=== PATIENT | male | born 1995 | race Caucasian/White ===

== ENCOUNTER 2017-06-03 21:29 | Emergency (ER) | payer MEDICARE, MEDICAID ==
[2017-06-04] MEDS ORDERED: Tetan/Diph/Pertus SYR(Tdap)* 0.5 ML SYR(BOOSTRIX) use SYR IM ONE (01:03)
[2017-06-04] MEDS ORDERED: Ibuprofen TAB* 600 MG PO ONE (01:03)
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
[2017-06-04] MEDS ORDERED: Cephalexin CAP* 500 MG PO ONE (01:23)
[2017-06-04 02:16] VITALS: BP 129/65
--- NOTE | 2017-06-04 07:37 | RAD ---
INDICATION: Laceration to right middle finger COMPARISON: None. TECHNIQUE: 2 views of the right hand were obtained. FINDINGS: On the 2 views of the right hand and there is flexion at the right middle finger distal interphalangeal joint. The bones are otherwise appropriately corticated and well aligned. No subcutaneous foreign body is visualized. IMPRESSION: Flexure of the right middle finger distal interphalangeal joint could be due to positioning or secondary to a tendinous injury following laceration. Please correlate to physical examination.
== END 2017-06-04 02:15 | disposition home or self-care (01) ==
LOC: ED 21:29
DX: S61.219A Laceration without foreign body of unspecified finger without damage to nail, initial encounter (principal); S63.612A Unspecified sprain of right middle finger, initial encounter; W25.XXXA Contact with sharp glass, initial encounter; Y93.9 Activity, unspecified; Y92.9 Unspecified place or not applicable; Z87.39 Personal history of other diseases of the musculoskeletal system and connective tissue; F17.210 Nicotine dependence, cigarettes, uncomplicated
CPT/HCPCS: 90471; 90715; 99282; A9270-GY

== ENCOUNTER 2017-06-04 10:28 | Emergency (ER) | payer MEDICARE, MEDICAID ==
[2017-06-04 10:38] VITALS: BP 133/78
[2017-06-04] MEDS ORDERED: Cephalexin CAP* 500 MG PO ONE (11:27)
[2017-06-04] MEDS ORDERED: Bacitracin OINTMENT* 1 TUBE TOPICAL ONE (11:27)
--- NOTE | 2017-06-22 11:39 | UC ---
Gerardo Ross Alfonso, scribed for Fela Daniels MD on 06/04/17 at 1127 . Hand/Wrist HPI - HPI Summary HPI Summary: This patient is a 21 year old M presenting to [facility] with a chief complaint of right 3rd finger pain since yesterday. He presented to [facility] a few hours ago where his right finger laceration was treated. The patient rates the pain 8/10 in severity. Symptoms aggravated by nothing. Symptoms alleviated by nothing. Pt requests medication for the pain. Patients medications reviewed this visit. Patients allergies reviewed this visit. - History Of Current Complaint Chief Complaint: UCUpperExtremity Stated Complaint: NEEDS PAIN MED FOR FINGER INJURY Time Seen by Provider: 06/04/17 10:51 Hx Obtained From: Patient Onset/Duration: Sudden Onset, Lasting Hours - yesterday, Still Present Severity Initially: Moderate Severity Currently: Moderate Pain Intensity: 8 Pain Scale Used: 0-10 Numeric Aggravating Factor(s): Other - Nothing Alleviating: Nothing Associated Signs And Symptoms: Positive: Other - right hand laceration / pain - Allergies/Home Medications Allergies/Adverse Reactions: Allergies Allergy/AdvReac Type Severity Reaction Status Date / Time No Known Allergies Allergy Verified 06/05/17 09:31 PMH/Surg Hx/FS Hx/Imm Hx Other History Of: Negative For: Anticoagulant Therapy - Surgical History Surgical History: None Surgery Procedure, Year, and Place: Unknown - Family History Known Family History: Positive: Cardiac Disease, Diabetes - Social History Alcohol Use: None Substance Use Type: Marijuana Substance Use Comment - Amount & Last Used: hx of opiate Smoking Status (MU): Current Every Day Smoker Amount Used/How Often: ppd Review of Systems Constitutional: Negative Skin: Other - Positive right 3rd finger laceration and pain All Other Systems Reviewed And Are Negative: Yes Physical Exam Triage Information Reviewed: Yes Appearance: Well-Nourished Vital Signs: Initial Vital Signs Temp 98.1 F 06/04/17 10:35 Pulse 66 06/04/17 10:35 Resp 16 06/04/17 10:35 BP 133/78 06/04/17 10:35 Pulse Ox 100 06/04/17 10:35 Vital Signs Reviewed: Yes Eye Exam: Normal ENT Exam: Normal Neck exam: Normal Neck: Positive: No Lymphadenopathy Respiratory Exam: Normal Respiratory: Positive: Other: - no dyspnea, no tachypnea, normal respiratory rate Cardiovascular: Positive: RRR, Other: - good general skin color, good capillary refill Abdomen Description: Positive: Nontender, Soft Bowel Sounds: Positive: Present Musculoskeletal Exam: Normal Musculoskeletal: Positive: Strength Intact Neurological Exam: Normal Neurological: Positive: Alert Psychological: Positive: Age Appropriate Behavior Skin: Positive: Other - Right 3rd finger has a 2 cm irregular laceration. Mild redness. Macerated. No purulence. Cap refill less than two seconds. Sensations distally intact to light touch. Deep with tendon involvement. Hand/Wrist Course/Dx - Course Course Of Treatment: This patient is a 21 year old M presenting to [facility] with a chief complaint of right 3rd finger pain since yesterday. [facility] his [facility] finger lac[facility] was treated. The patient rates the pain 8/10 in severity. Symptoms aggravated by nothing. Symptoms alleviated by nothing. Pt requests medication for the pain. Patients medications reviewed this visit. Patients allergies reviewed this visit. Patient will be discharged with follow up from Dr. Aguilera and PCP. The patient is agreeable with this plan. Will f/u with Dr. Aguilera today after [facility] visit. Splint and bandage re-applied here, with good distal cap refill upon completion. Analgesic type / script per Dr. Aguilera. D/w pt, he is ok with this. - Differential Dx/Diagnosis Provider Diagnoses: R 3rd finger laceration with tendon involvement Discharge - Discharge Plan Condition: Stable Disposition: HOME Patient Education Materials: Tendon Laceration (ED) Referrals: [facility] PHYSICIAN REFERRAL [Outside] Orquidea Aguilera MD [Medical Doctor] - Additional Instructions: Follow up primary care physician - see [facility] referral tel number Follow up Dr. Lewis today at 13:30. Keep splint on until then. The documentation as recorded by the Gerardo posadas Alfonso accurately reflects the service I personally performed and the decisions made by me, Fela Daniels MD.
== END 2017-06-04 11:50 | disposition home or self-care (01) ==
LOC: UCEAST 10:28
DX: S61.212A Laceration without foreign body of right middle finger without damage to nail, initial encounter (principal); S56.423A Laceration of extensor muscle, fascia and tendon of right middle finger at forearm level, initial encounter; W25.XXXA Contact with sharp glass, initial encounter; Y93.9 Activity, unspecified; Y92.9 Unspecified place or not applicable; F17.210 Nicotine dependence, cigarettes, uncomplicated
CPT/HCPCS: 99212; A9270-GY; G0463

== ENCOUNTER 2017-06-05 09:13 | Day surgery (SDC) | payer MEDICARE, MEDICAID ==
[~2017-06-05 09:13] MED LIST: Buffered Lidocaine 0.9% SYRIN* 5 ML/SYR SYRINGE INTRADERM ONE
[2017-06-05] MEDS ORDERED: ceFAZolin 2 GM PREMIX (*) 50 ML IVPB ONE (09:22)
[2017-06-05] MEDS ORDERED: fentaNYL* 50 MCG/ML 2 ML VIAL (100 MCG VIAL) ONE (10:21)
[2017-06-05] MEDS ORDERED: Midazolam* 1 MG/ML 2 ML VIAL (2 MG) ONE (10:22)
[2017-06-05] MEDS ORDERED: Lidocaine 1% INJ* 10 MG/ML 30 ML SDV ONE (10:34)
[2017-06-05] MEDS ORDERED: Ketorolac INJ* 30 MG/ML 1 ML VIAL ONE (10:49)
[2017-06-05] MEDS ORDERED: Propofol* 10 MG/ML 20 ML BTL IV PUSH ONE (10:49)
[2017-06-05] MEDS ORDERED: Lidocaine 2% PF * 5 ML VIAL ONE (10:49)
[2017-06-05] MEDS ORDERED: Ondansetron INJ* 2 MG/ML VIAL IV PRN (11:10)
[2017-06-05] MEDS ORDERED: Acetaminophen TAB* 325 MG PO PRN (11:10)
[2017-06-05] MEDS ORDERED: fentaNYL* 50 MCG/ML 2 ML VIAL (100 MCG VIAL) IV PRN (11:10)
[2017-06-05] MEDS ORDERED: DiMENhydriNATE IV* 50 MG/ML VIAL IV PUSH PRN (11:10)
[2017-06-05 11:54] VITALS: BP 114/80
--- NOTE | 2017-06-06 05:02 | OP ---
DATE OF OPERATION: 06/05/17 [facility] DATE OF : 89 SURGEON: Orquidea Aguilera MD SUPERVISOR ENDLESS TRACK VEHICLE: RAYMON Sheriff ANESTHESIOLOGIST: Dr. Sam ANESTHESIA: Local MAC. PRE-OP DIAGNOSIS: Right long finger extensor tendon laceration. POST-OP DIAGNOSIS: Right long finger extensor tendon laceration. OPERATIVE PROCEDURE: Right long finger extensor tendon repair. ESTIMATED BLOOD LOSS: Zero. TOURNIQUET TIME: About 20 minutes. INDICATIONS FOR PROCEDURE: Dakotah is a 21-year-old male who injured his right long finger when he accidentally put it through a glass window. Since the injury, he has a laceration at the DIP joint of his finger and he cannot extend the DIP joint. He presents for extensor tendon repair. DESCRIPTION OF PROCEDURE: The patient was brought to the operating room, given a sedation anesthetic and a digital block with 10 mL of 1% plain lidocaine. The skin of his right hand and forearm was prepped and draped in the usual sterile fashion. The hand and forearm were exsanguinated and the tourniquet elevated to 250 mmHg. The incision was slightly extended on each end and we were able to visualize the extensor tendon, which was completely lacerated. The wound was irrigated with saline and then the DIP joint was pinned in full extension with a single point 0.45-inch K-wire. The position of the pin in the joint were confirmed on the C-arm. The extensor tendon ends were then reapproximated with 5-0 nylon suture and again the wound was irrigated and the skin edges were reapproximated with 4-0 nylon suture. The wound was dressed with Xeroform, 4x4, Webril and AlumaFoam splint. The patient tolerated the procedure well and was brought to the recovery room in good condition. [id number]/[facility] #: [id number] [facility] CENTERBecky
--- NOTE | 2017-06-10 08:48 | RAD ---
INDICATION: RIGHT middle finger extensor tendon laceration. COMPARISON: June 03, 2017 radiographs. TECHNIQUE: 14 seconds fluoroscopy. FINDINGS: Spot images document placement of a percutaneous pin across the distal interphalangeal joint in neutral position. IMPRESSION: Procedural fluoroscopy. CPT II Codes: 6045F
== END 2017-06-05 12:00 | disposition home or self-care (01) ==
LOC: OREAST 09:13
PROVIDERS: ATTEND Orthopaedic Surgery
DX: S66.322A Laceration of extensor muscle, fascia and tendon of right middle finger at wrist and hand level, initial encounter (principal); W25.XXXA Contact with sharp glass, initial encounter; I11.9 Hypertensive heart disease without heart failure; Y92.9 Unspecified place or not applicable; J45.909 Unspecified asthma, uncomplicated; F17.200 Nicotine dependence, unspecified, uncomplicated
CPT/HCPCS: 76000; C1776; J0690; J1885; J2001; J2250; J2704; J3010

== ENCOUNTER 2017-10-09 11:50 | Emergency (ER) | payer MEDICAID, MEDICARE ==
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
[2017-10-09] MEDS ORDERED: Lidocaine 1% MPF* 2 ML VIAL INJ ONE (13:24)
--- NOTE | 2017-10-09 13:30 | RAD ---
INDICATION: Tender, red, swelling just distal to the right antecubital fossa. COMPARISON: There are no prior studies available for comparison. TECHNIQUE: Multiple real-time images of the right antecubital fossa were obtained. FINDINGS: Just distal to the antecubital fossa there is soft tissue swelling and a complex fluid collection present measuring 3.2 x 1.1 x 1.5 cm. There is increased surrounding vascularity. IMPRESSION: SUPERFICIAL COMPLEX FLUID COLLECTION LOCATED JUST DISTAL TO THE ANTECUBITAL FOSSA SUSPICIOUS FOR AN ABSCESS.
[2017-10-09] MEDS ORDERED: Sulfamethox/Trimethoprim DS 800/160* TAB PO ONE ×2 (13:50→13:53)
[2017-10-09 14:08] VITALS: BP 120/67
--- NOTE | 2017-10-11 10:45 | UC ---
- Progress Note Progress Note: no change
--- NOTE | 2017-10-12 14:26 | ED ---
Progress - Progress Note Progress Note: No growth on culture on Bactrim no change Conrad 10/12/17
== END 2017-10-09 14:06 | disposition home or self-care (01) ==
LOC: UCEAST 11:50
DX: L02.413 Cutaneous abscess of right upper limb (principal); L03.113 Cellulitis of right upper limb; F17.210 Nicotine dependence, cigarettes, uncomplicated
CPT/HCPCS: 10060; 87070; 87205; 99213; A9270-GY; G0463

== ENCOUNTER 2018-01-30 12:51 | Emergency (ER) | payer MEDICAID ==
[2018-01-30 13:08] VITALS: BP 138/81
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
== END 2018-01-30 13:30 | disposition home or self-care (01) ==
LOC: UCEAST 12:51
DX: L03.114 Cellulitis of left upper limb (principal); F15.10 Other stimulant abuse, uncomplicated; F17.210 Nicotine dependence, cigarettes, uncomplicated
CPT/HCPCS: 99212; G0463

== ENCOUNTER 2018-07-10 16:28 | Emergency (ER) | payer MEDICARE, MEDICAID ==
[2018-07-10 16:45] VITALS: BP 129/74
[2018-07-10] MEDS ORDERED: Lidocaine 1%* 5 ML VIAL INJ ONE (18:23)
[2018-07-10] MEDS ORDERED: Amoxicillin/Clavulanate TAB* 875 MG PO ONE (18:24)
[2018-07-10] MEDS ORDERED: Clindamycin CAP* 150 MG PO ONE (18:56)
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
== END 2018-07-10 19:13 | disposition home or self-care (01) ==
LOC: UCEAST 16:28
DX: L03.113 Cellulitis of right upper limb (principal); L02.413 Cutaneous abscess of right upper limb; F17.210 Nicotine dependence, cigarettes, uncomplicated
CPT/HCPCS: 10060; 99212; A9270-GY; G0463

== ENCOUNTER 2019-08-08 17:49 | Emergency (ER) | payer MEDICARE, MEDICAID ==
[2019-08-08 19:04] VITALS: BP 120/77
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
[2019-08-08] MEDS ORDERED: Amoxicillin/Clavulanate TAB* 875 MG PO ONE (20:44)
[2019-08-08] MEDS ORDERED: Sulfamethox/Trimethoprim DS 800/160* TAB PO ONE (20:44)
[2019-08-08] MEDS ORDERED: Naproxen TAB* 250 MG PO ONE (20:44)
== END 2019-08-08 21:03 | disposition home or self-care (01) ==
LOC: UCEAST 17:49
DX: L03.114 Cellulitis of left upper limb (principal); F17.210 Nicotine dependence, cigarettes, uncomplicated
CPT/HCPCS: 99212; A9270-GY; G0463

== ENCOUNTER 2019-08-11 09:41 | Emergency (ER) | payer MEDICAID, MEDICARE ==
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
[2019-08-11] MEDS ORDERED: Clindamycin 600 MG/D5W BAG(*) 600 MG/50 ML BAG IV ONE (11:05)
[2019-08-11 11:12] LABS: ABS Basophils 0.1 10^3/ul (0-0.2); ABS Eosinophils 0.1 10^3/ul (0-0.6); ABS Lymphocytes 1.6 10^3/ul (1.0-4.8); ABS Monocytes 0.9 10^3/ul (0-0.8); ABS Neutrophils 5.1 10^3/ul (1.5-7.7); Eosinophil % 1.5 %; Hematocrit 39 % (42-52); Hemoglobin 13.3 g/dL (14.0-18.0); Lymphocyte % 21.1 %; Mean Corpuscular HGB Conc 34 g/dL (31-36); Mean Corpuscular Hemoglobin 31 pg (27-31); Mean Corpuscular Volume 90 fL (80-94); Platelet Count 334 10^3/uL (150-450); Red Blood Count 4.33 10^6 /uL (4.18-5.48); Red Cell Distribution Width 14 % (10-15); White Blood Count 7.8 10^3/uL (3.5-10.8)
[2019-08-11 11:25] LABS: Albumin 3.9 g/dL (3.2-5.2); Albumin/Globulin Ratio 1.4 (1-3); C Reactive Protein 128.34 mg/L (<8.01); Calcium 9.3 mg/dL (8.6-10.3); EGFR African American 110.2 (>60); Globulin 2.7 g/dL (2-4); Potassium 4.2 mmol/L (3.5-5.0); Total Bilirubin 0.3 mg/dL (0.2-1.0); Total Protein 6.6 g/dL (6.4-8.9)
[2019-08-11] MEDS ORDERED: Iohexol 300* (CONTRAST) 10 ML SDV IV ONE (12:19)
[2019-08-11] MEDS ORDERED: Lidocaine 1% MPF ** 5 ML VIAL INJ ONE (13:13)
[2019-08-11 13:52] VITALS: BP 123/98
== END 2019-08-11 13:45 | disposition home or self-care (01) ==
LOC: ED 09:41
DX: L02.414 Cutaneous abscess of left upper limb (principal); F19.10 Other psychoactive substance abuse, uncomplicated; I10 Essential (primary) hypertension; F90.9 Attention-deficit hyperactivity disorder, unspecified type; F31.9 Bipolar disorder, unspecified; B19.20 Unspecified viral hepatitis C without hepatic coma; F17.210 Nicotine dependence, cigarettes, uncomplicated
CPT/HCPCS: 10060; 36415; 80053; 83605; 85025; 86140; 96365; 99283; Q9967

== ENCOUNTER 2019-12-15 20:28 | Emergency (ER) | payer MEDICARE ==
[2019-12-15 21:02] VITALS: BP 138/81
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
[2019-12-15] MEDS ORDERED: Clindamycin CAP* 150 MG PO ONE (21:25)
[2019-12-15] MEDS ORDERED: Lidocaine 2% VISCOUS* 15 ML UDC SWISH SPIT ONE (21:25)
[2019-12-15] MEDS ORDERED: Ibuprofen TAB* 400 MG PO ONE (21:25)
== END 2019-12-15 22:00 | disposition home or self-care (01) ==
LOC: UCEAST 20:28
DX: K04.7 Periapical abscess without sinus (principal); K02.9 Dental caries, unspecified; J45.909 Unspecified asthma, uncomplicated; F17.210 Nicotine dependence, cigarettes, uncomplicated
CPT/HCPCS: 99213; A9270-GY; G0463

== ENCOUNTER 2021-10-03 05:19 | Inpatient (IN) ==
[2021-10-03] MEDS ORDERED: Naloxone 4 mg VIAL 0.4 MG/ML 10 ml VIAL (4 mg) ONE (05:20)
[2021-10-03] MEDS ORDERED: Sodium Bicarbonate 8.4% VIAL 1 MEQ/ML 50 ml VIAL (50 meq) ONE (05:20)
[2021-10-03] MEDS ORDERED: Calcium Gluconate 1 GM/10 ML VIAL (in Pyxis) ONE (05:20)
[2021-10-03] MEDS ORDERED: Norepinephrine 16MCG/ML IVPRE (4 MG/250 ML) in NS 0.9% IV ONE (05:20)
[2021-10-03] MEDS ORDERED: Vasopressin 100 UNITS in D5W 250 ml BAG 245 ML IV SCH (05:45)
[2021-10-03] MEDS ORDERED: Vasopressin 100 UNITS in D5W 250 ml BAG 245 ML IVPB ONE (06:00)
[2021-10-03 06:10] LABS: CO2 Carbon Dioxide 26 mmol/L (22-32); Calcium 11.8 mg/dL (8.6-10.3); Chloride 102 mmol/L (101-111); Hematocrit 43 % (42-52); Hemoglobin 12.8 g/dL (14.0-18.0); Magnesium 3.5 mg/dL (1.9-2.7); Mean Corpuscular HGB Conc 30 g/dL (31-36); Mean Corpuscular Hemoglobin 30 pg (27-31); Mean Corpuscular Volume 99 fL (80-94); Red Blood Count 4.29 10^6 /uL (4.18-5.48); Red Cell Distribution Width 15 % (10-15); White Blood Count 23.8 10^3/uL (3.5-10.8)
[2021-10-03 06:11] LABS: Urine Appearance Cloudy; Urine Bilirubin Negative (Negative); Urine Blood Negative (Negative); Urine Color Yellow; Urine Glucose Negative (Negative); Urine Ketones Negative (Negative); Urine Nitrite Negative (Negative); Urine Protein Negative (Negative); Urine Specific Gravity 1.027 (1.002-1.030); Urine Urobilinogen Negative (Negative)
[2021-10-03 06:16] LABS: Blood Urea Nitrogen 19 mg/dL (6-24); Glucose 114 mg/dL (70-100); eGFR CKD-EPI 42.7 (>60)
[2021-10-03] MEDS: Norepinephrine 16MCG/ML IVPRE 4,000 MCG/250 ML BAG IV SCH ×2 (06:22→07:07)
[2021-10-03 06:27] LABS: ABS Basophils 0.1 10^3/ul (0-0.2); ABS Eosinophils 0.2 10^3/ul (0-0.6); ABS Lymphocytes 5.6 10^3/ul (1.0-4.8); ABS Monocytes 1.8 10^3/ul (0-0.8); ABS Neutrophils 16.1 10^3/ul (1.5-7.7); Eosinophil % 0.8 %; Lymphocyte % 23.4 %; Mean Platelet Volume 7.9 fL (7.4-10.4); Nucleated Red Blood Cells % 0.1; Platelet Count 301 10^3/uL (150-450)
[2021-10-03 06:32] LABS: PCO2 Arterial > 121 mmHg (35-45); PO2 Arterial 56 mmHg (80-100)
[2021-10-03 06:32] LABS: Anion Gap 19 mmol/L (2-11); Potassium 6.9 mmol/L (3.5-5.0); Sodium 147 mmol/L (135-145)
[2021-10-03 06:37] LABS: Alcohol, S < 13 mg/dL (<13)
[2021-10-03 06:38] LABS: Urine Benzodiazepine Screen None Detected (None Detect); Urine Cannabinoids Screen Presumptive Positive (None Detect); Urine Opiates Screen None Detected (None Detect)
[2021-10-03] MEDS ORDERED: Lactated Ringers 1000 ml BAG 1,000 ML IV ONE ×2 (06:43→06:44)
[2021-10-03] MEDS ORDERED: CALCIUM GLUCONATE 1GM/50ML NS 1 GM/50 ML BAG IV ONE (06:44)
[2021-10-03] MEDS ORDERED: Dextrose 50% Syringe 50 ml 25 GM/50 ML SYRINGE IV PUSH ONE (06:45)
[2021-10-03 06:54] LABS: Troponin I 0.12 ng/mL (<0.03)
[2021-10-03] MEDS ORDERED: Norepinephrine 16MCG/ML IVPRE 4,000 MCG/250 ML BAG IV ONE ×2 (06:56→08:43)
[2021-10-03] MEDS ORDERED: Norepinephrine *QUAD STRENGTH* 16 mg/250 mL NS per protocol IV SCH (09:00)
[2021-10-03 09:28] LABS: Activated Partial Thrombo Time 56.5 seconds (26.0-38.0); INR 1.31 (0.86-1.15)
[2021-10-03 12:00] LABS: Hematocrit 39 % (42-52); Hemoglobin 12.3 g/dL (14.0-18.0); Mean Corpuscular HGB Conc 32 g/dL (31-36); Mean Corpuscular Hemoglobin 30 pg (27-31); Mean Corpuscular Volume 93 fL (80-94); Platelet Count 381 10^3/uL (150-450); Red Blood Count 4.15 10^6 /uL (4.18-5.48); Red Cell Distribution Width 14 % (10-15); White Blood Count 24.5 10^3/uL (3.5-10.8)
[2021-10-03 12:06] LABS: ABS Basophils 0.1 10^3/ul (0-0.2); ABS Eosinophils 0.1 10^3/ul (0-0.6); ABS Lymphocytes 2.8 10^3/ul (1.0-4.8); ABS Monocytes 0.4 10^3/ul (0-0.8); ABS Neutrophils 21.1 10^3/ul (1.5-7.7); ABS Nucleated RBC 0.1 10^3/ul; Eosinophil % 0.5 %; Lymphocyte % 11.6 %; Nucleated Red Blood Cells % 0.4
[2021-10-03 12:30] LABS: RBC Morphology Normal (Normal)
[2021-10-03] MEDS ORDERED: EPINEPHrine SYR 0.1MG/ML 10 ml SYRINGE ONE (12:40)
[2021-10-03 12:43] LABS: Albumin 3.3 g/dL (3.2-5.2); Albumin/Globulin Ratio 1.3 (1-3); Alkaline Phosphatase 284 U/L (35-149); Blood Urea Nitrogen 22 mg/dL (6-24); CO2 Carbon Dioxide 29 mmol/L (22-32); Calcium 8.8 mg/dL (8.6-10.3); Chloride 105 mmol/L (101-111); Globulin 2.6 g/dL (2-4); Sodium 141 mmol/L (135-145); Total Protein 5.9 g/dL (6.4-8.9); eGFR CKD-EPI 30.6 (>60)
[2021-10-03 12:45] LABS: Anion Gap 7 mmol/L (2-11); Glucose 23 mg/dL (70-100); Potassium 5.6 mmol/L (3.5-5.0)
[2021-10-03] MEDS ORDERED: Dextrose 50% Syringe 50 ml 25 GM/50 ML SYRINGE ONE (12:45)
[2021-10-03] MEDS ORDERED: Vasopressin 100 UNITS in NS 0.9% 250 ml 245 ML IV SCH ×2 (12:57→13:35)
[2021-10-03] MEDS ORDERED: D5W IV SCH (13:11)
[2021-10-03] MEDS ORDERED: EPINEPHRINE IV SCH (13:11)
[2021-10-03 13:17] LABS: AST > 10000 U/L (13-39)
[2021-10-03] MEDS ORDERED: Chlorhexidine MOUTHWASH 0.12% 15 ML UDC TOPICAL SCH (14:00)
[2021-10-03 14:15] LABS: ALT > 4500 U/L (7-52)
[2021-10-03 15:37] VITALS: BP 55/35
[2021-10-04] MEDS ORDERED: Famotidine IV 10 MG/ML 2 ml VIAL (20 mg) IV SLOW PU SCH (09:00)
== END 2021-10-03 17:15 | disposition expired | DRG 917 ==
LOC: ED 05:19 → EDHOLD 07:52 → ICU 08:47
PROVIDERS: ADMIT Internal Medicine Critical Care Medicine; ATTEND Internal Medicine Critical Care Medicine